=== PATIENT | female | born 1995 | race Caucasian/White ===

== ENCOUNTER 2016-09-15 19:29 | Emergency (ER) | payer OTHER ==
[~2016-09-15 19:29] MED LIST: AMOXICILLIN875 MG PO; BACTRIM DS TABL1 TA1 PO; CELEXA PO; COLACE; DIFLUCAN PO; FLAGYL PO; HYDROCODONE-APA1 T55 PO; MACROBID100 M1 PO; MOTRIN400 MG PO; NAPROXEN PO; NEXPLANON68 MG; NO MEDICATIONS; NORCO1 TAB 10/3; NORCO1 TAB 10/3 PO; PHENERGAN SUPP25 MG PR; PHENERGAN25 MG PO; PRENATAL1 TA1 PO; PYRIDIUM100 MG PO; ZANTAC150 M1 PO; ZOFRAN PO
== END 2016-09-15 19:45 | disposition home or self-care (01) ==
LOC: SED 19:29
DX: J20.9 Acute bronchitis, unspecified (principal); F17.200 Nicotine dependence, unspecified, uncomplicated
CPT/HCPCS: 99282

== ENCOUNTER 2016-09-27 02:45 | Emergency (ER) | payer OTHER ==
--- NOTE | ~2016-09-27 | CT4 ---
[facility] A Service of [facility] & [facility] RADIOLOGY TEXT RESULTS PATIENT: MARIA DEL ROSARIO BAKER LOCATION: SED : [birth year] UNIT #: [id number] AGE: [address]: Zacarias Slade MD SEX: F ORDER DR: [id number] [place] [id number] E MR#: [id number] #: [id number] NAME: MARIA DEL ROSARIO BAKER : 1995 SEX: F STUDY DATE/TIME: 09/27/2016 03:02 UNIT: SED ROOM: STUDY DESCRIPTION: CT Abd and Pelv Wo Cont Attending Physician: Zacarias Slade M.D. Ordering Physician: Zacarias Slade M.D. Primary Care Physician: Primary Care Physician No MEDICAL IMAGING REPORT This report is preliminary unless electronic signature is present. EXAM Abdomen and pelvis CT 09/27 at 03:02 INDICATIONS Hematuria with low back pain and nausea that started this morning. Pain is currently 10/10. TECHNIQUE Axial noncontrast images were obtained through the abdomen and pelvis. Multiplanar reformats were obtained. Comparison made with 10/14/2015. This CT exam was performed with one or more of the following radiation dose reduction techniques: automatic exposure control, adjustment of mA and/or kV according to patient size, and iterative reconstruction. FINDINGS Abdomen: The lung bases are clear. The gallbladder is unremarkable. Splenomegaly is stable with a craniocaudal gbri-ej-dtnj length of 14.1 cm. Tiny bilateral nonobstructing renal stones are present. No ureteral stones are seen, and there is no hydronephrosis. The unenhanced solid organs are otherwise normal. The unopacified GI tract is normal. Pelvis: The appendix is normal. Remainder of the unopacified GI tract is grossly normal as well. There is a 3.5 cm left ovarian cysts. Solid pelvic organs are otherwise normal. The urinary bladder is relatively decompressed but grossly normal. There are no lower ureteral stones. IMPRESSION 1. Tiny bilateral nonobstructing renal stones. No ureteral stones are seen. There is no hydronephrosis. 2. Normal unopacified GI tract including the appendix. 3. 3.5 cm left ovarian cyst. 4. Stable mild splenomegaly. [facility]. [facility] A Service of [facility] & [facility] RADIOLOGY TEXT RESULTS PATIENT: MARIA DEL ROSARIO BAKER LOCATION: [facility] [place] : [birth year] UNIT #: [id number] AGE: [address]: Zacarias Slade MD SEX: F ORDER DR: Dictated by... Jacob Pozo Jr., M.D. THIS IS AN ELECTRONICALLY VERIFIED REPORT Jacob Pozo Jr., M.D. at 09/27/2016 9:17 PM VINICIO/joseph TD: 09/27/2016 10:19 JOB #: [id number] MEDICAL IMAGING REPORT
[2016-09-27 02:27] LABS: URINE SOURCE CLEAN CATCH
[2016-09-27 02:31] LABS: URINE APPEARANCE HAZY; URINE BILIRUBIN NEG (NEG); URINE BLOOD 2+ (NEG); URINE COLOR YELLOW; URINE GLUCOSE NEG (NORM); URINE LEUKOCYTE ESTERASE NEG (NEG); URINE NITRATE NEG (NEG); URINE PH 5.5 (5-8); URINE PROTEIN TRACE (NEG); URINE SPECIFIC GRAVITY >=1.030 (1.003-1.035); URINE UROBILINOGEN 0.2 MG/DL (NORM)
[2016-09-27 02:33] LABS: CULTURE INDICATED? YES; MICRO INDICATED? YES; URINE BACTERIA 1+ (NEG); URINE KETONE 2+ (NEG); URINE SQUAMOUS EPITHELIAL CELL OCCAS /[HPF]; URINE WBC 0-2 /[HPF] (0-5)
[2016-09-27 02:34] LABS: URINE MUCUS PRESENT
[2016-09-27 02:39] LABS: INFLUENZA A NEG (NEG); INFLUENZA B NEG (NEG)
[2016-09-27 02:43] LABS: BLOOD UREA NITROGEN 9 mg/dL (9-23); BUN/CREATININE RATIO 11.25; CALCIUM SERUM 9.1 mg/dL (8.4-10.2); CARBON DIOXIDE 23 mmol/L (22-31); CHLORIDE 104 mmol/L (100-111); CREATININE SERUM 0.8 mg/dL (0.6-1.4); GLOM FILT RATE Estimated ABOVE60 mL/min (>60); GLUCOSE FASTING 102 mg/dL (70-110); POTASSIUM 3.5 mmol/L (3.5-5.1); SODIUM 137 mmol/L (135-145)
[2016-09-27 03:13] LABS: BASOPHIL% 0.7 % (0-2.5); EOSINOPHIL% 0.4 % (0.0-7.0); HEMATOCRIT 43.4 % (35.0-45.0); HEMOGLOBIN 14.6 gm/dL (12.0-16.0); LYMPHOCYTE# 0.5 X10e3 (1.0-3.5); LYMPHOCYTE% 9.6 % (17.0-45.0); MEAN CELL VOLUME 93.5 FL (83-96); MEAN CORPUSCULAR HEMOGLOBIN 31.5 PG (28-34); MEAN CORPUSCULAR HGB CONC 33.6 g/dL (30-36); MEAN PLATELET VOLUME 9.6 FL (6.5-11.5); MONOCYTE# 0.6 X10e3 (0-1.0); MONOCYTE% 12.7 % (3.0-12.0); NEUTROPHIL# 3.7 X10e3 (1.5-7.1); NEUTROPHIL% 76.6 % (40-75); PLATELET COUNT 173 X10e3 (140-420); RED BLOOD COUNT 4.65 X10e (3.90-5.30); RED CELL DISTRIBUTION WIDTH 13.3 % (11.0-15.5); WHITE BLOOD COUNT 4.9 X10e3 (4.0-10.5)
[2016-09-27 03:15] LABS: DIFF IND NO
== END 2016-09-27 03:49 | disposition home or self-care (01) ==
LOC: SED 02:45
PROVIDERS: Emergency Medicine
DX: E86.0 Dehydration (principal); M54.9 Dorsalgia, unspecified; R11.0 Nausea; F17.200 Nicotine dependence, unspecified, uncomplicated; F32.9 Major depressive disorder, single episode, unspecified
CPT/HCPCS: 74176; 80048; 81003; 82550; 84703; 85025; 87086; 87804; 96361; 96374; 99284; J2405

== ENCOUNTER 2016-11-22 12:42 | Emergency (ER) | payer OTHER | END 2016-11-22 13:19 | disposition home or self-care (01) | LOC: SED 12:42 | DX: H66.93 Otitis media, unspecified, bilateral (principal); F17.210 Nicotine dependence, cigarettes, uncomplicated | CPT/HCPCS: 99282 ==

== ENCOUNTER 2017-02-08 09:53 | Emergency (ER) | payer OTHER | END 2017-02-08 11:24 | disposition home or self-care (01) | LOC: SED 09:53 | DX: H10.9 Unspecified conjunctivitis (principal); J06.9 Acute upper respiratory infection, unspecified; F17.210 Nicotine dependence, cigarettes, uncomplicated | CPT/HCPCS: 87651; 99283 ==